=== PATIENT | female | born 1965 | race Caucasian/White ===

== ENCOUNTER 2018-10-12 13:43 | Outpatient (CLI) | payer BC ==
[~2018-10-12] VITALS: Ht 170.2 cm; Wt 77.6 kg
[2018-10-12 13:57] VITALS: BP 138/87
[2018-10-12] MEDS ORDERED: CITA10TA7 PO (14:00)
[2018-10-12 14:43] LABS: BASOPHILS % (AUTO) 0 % (0-10); EOSINOPHILS % (AUTO) 0 % (0-10); HEMATOCRIT 39 % (35-52); HEMOGLOBIN 12.8 G/DL (11.5-16.0); LYMPHOCYTES # (AUTO) 1.4 X 10^3 (1.0-4.0); LYMPHOCYTES % (AUTO) 30 % (12-44); MEAN CORPUSCULAR HEMOGLOBIN 31 PG (25-34); MEAN CORPUSCULAR HGB CONC 33 G/DL (32-36); MEAN CORPUSCULAR VOLUME 94 FL (80-99); MEAN PLATELET VOLUME 8.3 FL (7.4-10.4); MONOCYTES # (AUTO) 0.4 X 10^3 (0.0-1.0); MONOCYTES % (AUTO) 8 % (0-12); NEUTROPHILS # (AUTO) 2.9 X 10^3 (1.8-7.8); NEUTROPHILS % (AUTO) 61 % (42-75); PLATELET COUNT 283 10^3/uL (130-400); RED BLOOD COUNT 4.11 10^6/uL (4.35-5.85); RED CELL DISTRIBUTION WIDTH 12.3 % (10.0-14.5); WHITE BLOOD COUNT 4.8 10^3/uL (4.3-11.0)
[2018-10-12 14:45] LABS: BILIRUBIN,URINE NEGATIVE (NEGATIVE); CLARITY,URINE SLIGHTLY CLOUDY; COLOR,URINE YELLOW; GLUCOSE, URINE (UA) NEGATIVE (NEGATIVE); KETONES,URINE NEGATIVE (NEGATIVE); LEUKOCYTE ESTERASE ,URINE NEGATIVE (NEGATIVE); NITRITE,URINE NEGATIVE (NEGATIVE); PH,URINE 7 (5-9); PROTEIN,URINE NEGATIVE (NEGATIVE); UROBILINOGEN,URINE NORMAL (NORMAL)
[2018-10-12 14:51] LABS: BACTERIA,URINE NEGATIVE /HPF; RBC,URINE 0-2 /HPF; SQUAMOUS EPITHELIAL CELL,UR RARE /HPF
[2018-10-12 14:56] LABS: PROTHROMBIN TIME PATIENT 13.2 SEC (12.2-14.7)
[2018-10-12 15:01] LABS: ERYTHROCYTE SEDIMENTATION RATE 6 MM/HR (0-30)
--- NOTE | 2018-10-12 15:04 | Diagnostic Imaging Report ---
INDICATION: Preop right knee arthroplasty. FINDINGS: Heart size and pulmonary vascularity are normal. Lungs are clear. There are no effusions or pneumothoraces. IMPRESSION: Negative chest. Dictated by: Dictated on workstation # [id number]
[2018-10-12 15:06] LABS: ALANINE AMINOTRANSFERASE 25 U/L (0-55); ALBUMIN 4.6 GM/DL (3.2-4.5); ALKALINE PHOSPHATASE 69 U/L (40-136); BILIRUBIN,TOTAL 0.3 MG/DL (0.1-1.0); BUN/CREATININE RATIO 14; CALCIUM 9.8 MG/DL (8.5-10.1); CARBON DIOXIDE 23 MMOL/L (21-32); CHLORIDE 104 MMOL/L (98-107); CREATININE SERUM 0.78 MG/DL (0.60-1.30); GFR ESTIMATED > 60; GLUCOSE 89 MG/DL (70-105); POTASSIUM 3.8 MMOL/L (3.6-5.0); SODIUM 139 MMOL/L (135-145); TOTAL PROTEIN 7.6 GM/DL (6.4-8.2)
== END 2018-10-12 15:00 | disposition home or self-care (01) ==
LOC: PREOP 13:43
PROVIDERS: ATTEND Orthopaedic Surgery
DX: Z01.810 Encounter for preprocedural cardiovascular examination (principal); Z01.811 Encounter for preprocedural respiratory examination; Z01.812 Encounter for preprocedural laboratory examination; M17.11 Unilateral primary osteoarthritis, right knee; R53.83 Other fatigue
CPT/HCPCS: 36415; 71046; 80053; 81000; 85025; 85610; 85652; 86850; 86900; 86901; 87081; 93005

== ENCOUNTER 2018-10-18 06:21 | Inpatient (IN) | payer BC ==
--- NOTE | 2018-10-09 11:57 | HISTORY AND PHYSICAL ---
DATE OF SERVICE: 10/18/2018 ADMISSION HISTORY AND PHYSICAL DATE OF ADMISSION: 10/18/2018 This will be for inpatient admission on 10/18/2018 for right total knee arthroplasty. The patient will require regular inpatient admission secondary to pain management, physical therapy, gait training and instability. HISTORY OF PRESENT ILLNESS: The patient is a 52-year-old female with progressively worsening right knee pain. She has undergone multiple arthroscopies in the past. She reports no improvement with progressive symptoms. She has undergone injections well. She reports difficulty with ambulation because of her knee. Radiographs reveal severe medial and patellofemoral arthrosis and due to functional impairment and failure to improve with conservative measures, the patient elected to proceed with surgical intervention. REVIEW OF SYSTEMS: No chest pain, no shortness of breath. No dysuria. PAST MEDICAL HISTORY: Denies. PAST SURGICAL HISTORY: Right knee arthroscopy and left carpal tunnel release. FAMILY HISTORY: Significant for thyroid disorder. PRIMARY CARE PROVIDER: Dr. Duran. MEDICATIONS: Celexa, meloxicam. ALLERGIES: No known allergies. SOCIAL HISTORY: The patient denies alcohol, tobacco use. PHYSICAL EXAMINATION: GENERAL: The patient is well developed, well-nourished, in no acute distress. HEENT: Normocephalic, atraumatic. Pupils are equal, round, reactive to light. Oropharynx is clear. NECK: Supple, no lymphadenopathy. LUNGS: Clear to auscultation bilaterally. HEART: Regular rate and rhythm. ABDOMEN: Soft, nontender, nondistended. EXTREMITIES: The right knee demonstrates a slight effusion. There is no erythema or warmth. She has patellofemoral crepitus and pain with patellar loading. She ambulates with an antalgic gait. Range of motion is 0/2/125. IMPRESSION: Severe right knee osteoarthritis, unresponsive to conservative measures. PLAN: Right total knee arthroplasty. The risks, benefits, options, ramifications and recovery have been discussed at length with the patient. She understands and wishes to proceed. Job ID: [id number] DocumentID: [id number] Dictated Date: 10/09/2018 11:37:32 Assistant Center Director Date: 10/09/2018 11:56:23 Dictated By: AAYUSH UNDERWOOD MD
[~2018-10-18] VITALS: Ht 170.2 cm; Wt 77.6 kg
[~2018-10-18 06:21] MED LIST: CITA10TA7 PO
[2018-10-18] MEDS ORDERED: MIDAZOLAM 2 MG/2 ML (VERSED) VIAL ONE (06:34)
[2018-10-18] MEDS ORDERED: BUPIVACAINE 0.5% 30 ML (SENSORCAINE) VIAL ONE (06:34)
[2018-10-18] MEDS ORDERED: LIDOCAINE PF 2% 5 ML (XYLOCAINE) VIAL ONE ×2 (06:34→06:44)
[2018-10-18 06:40] VITALS: BP 138/93
[2018-10-18] MEDS: LACTATED RINGERS 1,000 ML IV PRN ×2 (06:40→08:45)
[2018-10-18] MEDS ORDERED: ONDANSETRON 4 MG/2 ML (SDV) Z0FRAN ONE (06:44)
[2018-10-18] MEDS ORDERED: DEXAMETHASONE 10 MG/ML (DECADRON) 1 ML VIAL ONE (06:44)
[2018-10-18] MEDS ORDERED: proPOfol 200 MG/20 ML (DIPRIVAN) VIAL IV ONE (06:44)
[2018-10-18] MEDS ORDERED: fentaNYL INJECTION 100 MCG/2 ML AMP ONE ×2 (06:44→08:01)
[2018-10-18] MEDS ORDERED: SEVOFLURANE (ULTANE) 15 ML INHAL SOLN ONE ×3 (06:44→08:50)
[2018-10-18] MEDS ORDERED: CEFUROXIME INJECTION 1,500 MG in NS (IVPB) 50 ML IV ONE (07:00)
[2018-10-18] MEDS ORDERED: TRANEXAMIC ACID 100 MG/ML 10 ML INJECTION IV ONE (07:05)
[2018-10-18] MEDS ORDERED: CEFUROXIME 1.5 GM (ZINACEF) VIAL ONE (07:16)
[2018-10-18] MEDS ORDERED: NS (IVPB) 50 ML ONE (07:16)
[2018-10-18] MEDS ORDERED: CATHETER FLUSH 10 ML SYR IV PRN (07:30)
[2018-10-18] MEDS ORDERED: INTRA-ARTICULAR IU ONE ×5 (07:30)
--- NOTE | 2018-10-18 07:36 | Progress Note-Pre Operative ---
Pre-Operative Progress Note H&P Reviewed The H&P was reviewed, patient examined and no changes noted. Date Seen by Provider: Oct 18, 2018 Time Seen by Provider: 07:15 Date H&P Reviewed: Oct 18, 2018 Time H&P Reviewed: 07:20 Pre-Operative Diagnosis: righ knee primary osteoarthritis AAYUSH UNDERWOOD MD Oct 18, 2018 07:36
--- NOTE | 2018-10-18 07:37 | Progress Note-Post Operative ---
Post-Operative Progess Note Surgeon (s)/Public Information Coordinator (s) Surgeon AAYUSH UNDERWOOD MD Public Information Coordinator: Orlando Chawla Pre-Operative Diagnosis righ knee primary osteoarthritis Post-Operative Diagnosis right knee primary osteoarthritis Procedure & Operative Findings Date of Procedure 10/18/18 Procedure Performed/Findings right total knee arthroplasty Anesthesia Type GETA Estimated Blood Loss Estimated blood loss (mL): minimal Specimens/Packing Specimens Removed none Packing: none AAYUSH UNDERWOOD MD Oct 18, 2018 07:37
[2018-10-18] MEDS ORDERED: OXYC1TAB87 PO (07:38)
--- NOTE | 2018-10-18 07:40 | D/C HH Face to Face Order ---
D/C Face to Face Orders Instructions for Patient Via Roxanne [email or web address].la, Patient Instructions/FollowUp: three weeks Physician to follow Patient: three weeks Discharge Diet for Home: No Restrictions Patient Data-Allergies,Ht & Wt Patient Allergies: Coded Allergies: No Known Drug Allergies (Unverified , 10/12/18) Height (Feet): 5 Height (Inches): 7.00 Weight (Pounds): 171 Weight (Ounces): 0.0 Home Health Need/Face to Face Date of Face to Face: Oct 18, 2018 Clinical Findings: Instability, Muscle weakness, Pain with ambulation, Unsteady gait I have seen Pt [id number]: Yes Discharged To: Home Diagnosis/Conditions: right total knee arthroplasty Patient is Homebound due to: Jeanne fall risk due to instabilty, Muscle weakness , Pain w/ambulation Homebound Status Due to the above stated illness, injury or surgical procedure (medical condition or diagnosis) and associated clinical findings, the patient is homebound because of his/her inability to leave home except with aid of a supportive device and/or person AND leaving the home requires a considerable and taxing effort or is medically contraindicated. Pt req the following assistanc: Walker Home Health Nursing Orders Home Health Services Order: Physical Therapy-Evaluate & Treat Dc right knee selene and apply steri strips 11/01/18 Home Health Infusion Therapy Line Start Date: Oct 18, 2018 Line Start Time: 0640 Line Type: Peripheral IV Site Location: Wrist Therapy Orders Therapy Orders: Physical Therapy, PT to assess for OT Therapy Specific Orders: Eval assistive deivces, Teach enviro modifications/ safety, Gait training, Provider maintenance therapy, Restore ROM Certify Stmt I certify that this patient is under my care and that I, a nurse practitioner or a physician; a activities assistant working with me, had a face to face encounter that - meets the physician face to face encounter requirements with this patient as dated. AAYUSH UNDERWOOD MD Oct 18, 2018 07:40
[2018-10-18] MEDS ORDERED: KETOROLAC 30 MG/ML VIAL ONE (08:50)
[2018-10-18] MEDS ORDERED: PHENYLEPHRINE 100 MCG/ML 10 ML (ANESTHESIA) SYR ONE (08:51)
[2018-10-18] MEDS ORDERED: morphine PCA 100 MG/100 ML BAG IV PRN (09:15)
[2018-10-18] MEDS ORDERED: ONDANSETRON 4 MG/2 ML (SDV) Z0FRAN IVP PRN ×2 (09:15)
[2018-10-18] MEDS ORDERED: HYDROmorphone 2 MG/ML VIAL (DILAUDID) IV ONE (09:15)
[2018-10-18] MEDS ORDERED: diphenhydrAMINE 50 MG/ML INJ (BENADRYL) IVP PRN (09:15)
[2018-10-18] MEDS ORDERED: ACETAMINOPHEN 325 MG TABLET PO PRN (09:15)
--- NOTE | 2018-10-18 10:15 | NUR ---
Pt. brought to floor from recovery via hospital bed. Joés Luis at bedside. Pt. oriented to room and call light. PROJECT EXECUTIVE Morphine set up and patient taught on use.
--- NOTE | 2018-10-18 10:18 | Diagnostic Imaging Report ---
INDICATION: Right knee arthroplasty. COMPARISON: None. FINDINGS: Two views of the right knee demonstrate well-seated arthroplasty without fracture or dislocation. There is no unexpected postoperative foreign body. IMPRESSION: Well-seated right knee arthroplasty. Dictated by: Dictated on workstation # [id number]
--- NOTE | 2018-10-18 10:25 | Progress Note-Standard ---
Standard Progress Note Progress Notes/Assess & Plan Date Seen by a Provider: Oct 18, 2018 Time Seen by a Provider: 09:30 Progress/Assessment & Plan post op check no complaints denies paresthesias radiographs--HW well positioned without fracture RLE--intact DF and PF of toes and ankle with intact sensation throughout. 2 plus DP pulse with brisk cap refill s/p RTKA mobilize as able AAYUSH UNDERWOOD MD Oct 18, 2018 10:25
[2018-10-18 10:30] VITALS: BP 122/59
--- NOTE | 2018-10-18 10:32 | OPERATIVE REPORT ---
DATE OF SERVICE: 10/18/2018 PREOPERATIVE DIAGNOSIS: Right knee primary osteoarthritis. POSTOPERATIVE DIAGNOSIS: Right knee primary osteoarthritis. PROCEDURE: Right total knee arthroplasty. SURGEON: Quinn Underwood MD. MANAGEMENT ADVISOR: Orlando Chawla, who assisted throughout the procedure and closed the incision. ANESTHESIA: General endotracheal by Jose Manuel Vo plus adductor nerve block. TOURNIQUET TIME: Approximately 63 minutes at 300 mmHg. ESTIMATED BLOOD LOSS: Minimal. DRAINS: None. COMPLICATIONS: None. POSTOPERATIVE PLAN: Routine protocol. MATERIALS: MicroPort cemented size 5 femur, cemented size 5 tibia with a 10 mm insert and cemented size 32 patellar button. STATEMENT OF MEDICAL NECESSITY: The patient is a 52-year-old female with longstanding progressive right knee pain. She has undergone treatment with multiple injections as well as arthroscopies without relief. Radiographs revealed severe medial and patellofemoral arthrosis. She reported functional impairment. Because of failure to improve with conservative measures and progressive symptoms, the patient elected to proceed with surgical intervention. DESCRIPTION OF PROCEDURE: After risks and benefits of the procedure were discussed and questions were answered, an informed consent was signed and placed on chart. The operative site was confirmed in the preoperative holding area initialed by the surgeon. The patient was then transported to the operating room and after adequate levels of general endotracheal anesthetic were obtained, a timeout was called confirming the operative site. The right lower extremity was then prepped and draped in the usual sterile fashion with the leg elevated and the knee flexed, tourniquet inflated to 300 mmHg. A standard anterior approach was utilized. Hemostasis was obtained with cautery. A medial parapatellar arthrotomy was performed leaving a 1 cm cuff on the patella for later reattachment. A portion of the fat pad was resected. The ACL was resected. A subperiosteal release was performed on the proximal medial tibia being careful to stay on the bony surface. The intramedullary guide was passed into the femur. The distal cutting block was placed and the distal cut was made. The femoral sizer was placed and the femur sized to a size 5. The 5 cutting block was placed parallel to the epicondylar axis and the cuts were made from posterior to anterior. A subperiosteal release was then carefully performed in the posterior distal femur, being careful to stay on the bony surface with a curved osteotome. The intramedullary guide was then passed into the tibia. The cutting block was placed and the drop hamzah transected at the intramedullary access. The cut was made and the tibial baseplate was placed. The drop hamzah again transected at the intramedullary access and this was then prepared with a drill and keel punch. The femoral trial was placed and the trochlear cut was made. The patella was then prepared by using freehand technique and resecting 10 mm off the undersurface of the peg. The peg guide was placed and the peg holes were drilled. The patellar trial was placed. The knee was taken through range of motion with a 10 mm tibial insert. Full extension was easily obtained, 120 degrees of flexion with gravity was easily obtained. The patella tracked well. There was no anterior/posterior or medial/lateral laxity in flexion or extension. The trials were removed. The joint was irrigated with pulse lavage. The periarticular block was placed in the posterior capsule, medial and lateral retinaculum and extensor mechanism and subcutaneous tissues. The bone ends were irrigated and dried. The tibial baseplate was cemented into position. Excessive cement was removed. The superior surface was irrigated and dried. The polyethylene insert was placed. Distal femur was irrigated and dried and the femoral prosthesis was cemented into position. Excessive cement was removed. The knee was brought into full extension until the cement had cured. The undersurface of patella was irrigated and dried. The patellar button was cemented into position. Excess cement was removed. Once the cement had cured, the knee was taken through range of motion. Full extension was easily obtained, 120 degrees of flexion with gravity was easily obtained. The patella tracked well. There was no anterior/posterior or medial/lateral laxity in flexion or extension. The joint was further irrigated. The arthrotomy was closed with #2 Tevdek in [id number] interrupted fashion. The knee was then flexed and no undue tension was noted at the repair site. Subcutaneous tissues were irrigated. A 0 Vicryl was used to deep subcutaneous tissue, 2-0 Vicryl for the superficial subcutaneous tissue, selene used on the skin. A sterile dressing was applied. The tourniquet was deflated and the patient was transported to recovery room, awake and in stable condition. Job ID: [id number] DocumentID: [id number] Dictated Date: 10/18/2018 09:07:37 Bicycle Ii Assembler Date: 10/18/2018 10:31:26 Dictated By: QUINN UNDERWOOD MD
[2018-10-18] MEDS: NS IV 1000 ML 1,000 ML IV SCH (10:45)
[2018-10-18 12:00] VITALS: BP 125/61
--- NOTE | 2018-10-18 13:55 | Physical Therapy Evaluation ---
PT Evaluation-General Medical Diagnosis Admission Date Oct 18, 2018 at 07:26 Medical Diagnosis: right TKA Onset Date: Oct 18, 2018 Therapy Diagnosis Therapy Diagnosis: impaired mobility, strength, endurance, ROM Height/Weight Height (Feet): 5 Height (Inches): 7.00 Weight (Pounds): 171 Weight (Ounces): 0.0 Precautions Precautions/Isolations: Standard Precautions Weight Bear Status Right Lower Extremity: Right Weight Bearing/Tolerated Referral Physician: Orlando Chawla Reason for Referral: Evaluation/Treatment Medical History Additional Medical History surg (right knee scope, carpal tunnel) Reviewed History: Yes Social History Current Living Status: Spouse Entry Into Home: Stairs With Railing PT Steps Into Home: 2 Prior/Core FIM Prior Level of Function Therapy Code Descriptions/Definitions Functional [place] Measure: 0=Not Assessed/NA 4=Minimal Assistance 1=Total Assistance 5=Supervision or Setup 2=Maximal Assistance 6=Modified [place] 3=Moderate Assistance 7=Complete [place] Therapy Quality Codes: 6 Independent with activity with or without an assistive device 5 Patient requires set up or clean up by helper. Patient completes activity by themselves 4 Supervision or touching assist (CGA). [place] provide cues , steadying assist 3 The helper provides less than half the effort to complete the activity 2 The helper provides more than half the effort to complete the activity 1 Dependent. The helper does all the effort to complete an activity 7 Patient refused to complete or attempt activity 9 The patient did not perform the activity before the current illness or injury 88 Not attempted due to Medical conditions or safety concerns Functional Abilities and Goals: Independent: Patient completed the activities by him/herself, with or without an assistive device, with no assistance from a helper. Needed Some Help: Patient needed partial assistance from another person to complete activities. Dependent: A helper completed the activities for the patient. Unknown: Not Applicable: Bed Mobility: 7 Transfers (B,C,W/C) (FIM): 7 Gait: 7 Stairs: 7 Indoor Mobility (Ambulation): Independent Stairs: Independent PT Evaluation-Current Subjective Patient in bed pre tx, agrees to PT, has 6/10 pain in right knee. Pt/Family Goals to be independent at home Objective Patient Orientation: Person, Place, Situation, Normal For Age Attachments: SCD's, Polar Pack ROM/Strength ROM Lower Extremities right knee flexion 50 degrees, extension +5 degrees Strength Lower Extremities NT Neuromuscular (Tone, Coordination, Reflexes) NT Sensory Vision: Wears Glasses Hearing: Functional Sensation Right Lower Extremit: Impaired Sensation Left Lower Extremity: Intact Sensation Lower Extremities patient still has some numbness on the medial side of her knee and calf Transfers Therapy Code Descriptions/Definitions Functional [place] Measure: 0=Not Assessed/NA 4=Minimal Assistance 1=Total Assistance 5=Supervision or Setup 2=Maximal Assistance 6=Modified [place] 3=Moderate Assistance 7=Complete [place] Transfers (B, C, W/C) (FIM): 5 Scootin Rollin Supine to/from Sit: 5 Sit to/from Stand: 5 bed t/f WC(FIM only if WC use): 5 Cues for hand placement and safety. Patient gets a little light headed with sitting and standing but it clears quickly. Gait Mode of Locomotion: Walk Anticipated Mode of Locomotion: Walk Gait (FIM): 2 Distance: 60' Gait Level of Assist: 4 Gait Persons Needed: 1 Gait Assistive Device: FWW Comments/Gait Description Patient ambulated 60' with a rolling walker with CGA, flexed right knee, decreased stance time on right, good heel strike. Balance Sitting Static: Normal Sitting Dynamic: Normal Standing Static: Good Standing Dynamic: Good Treatment Right total knee protocol x10 (AP, QS, HS, SAQ, SLR). CPM did not work, will get another one to her room soon and put it on her. Patient in bed post tx with nurse call, phone, tray, all needs met. Family in the room. Assessment/Needs Patient has impaired mobility, strength, endurance, ROM post right knee TKA. Rehab Potential: Fair PT Short Term Goals Short Term Goals Time Frame: Oct 25, 2018 Transfers (B,C,W/C) (FIM): 6 Gait (FIM): 5 Gait Distance Comment: 150' Gait Level of Assist: 5 Gait Assistive Device: FWW PT Plan Problem List Problem List: Activity Tolerance, Functional Strength, Safety, Balance, Gait, Transfer, Bed Mobility, ROM Treatment/Plan Treatment Plan: Continue Plan of Care Treatment Plan: Bed Mobility, Education, Functional Activity [place], Functional Strength, Gait, Safety, Therapeutic Exercise, Transfers Treatment Duration: Oct 25, 2018 Frequency: 11 times per week Estimated Hrs Per Day: .25 hour per day Patient and/or Family Agrees t: Yes Safety Risks/Education Patient Education: Gait Training, Transfer Techniques, Reviewed Use of Ice, Correct Positioning, Safety Issues Teaching Recipient: Patient Teaching Methods: Demonstration, Discussion Response to Teaching: Reinforcement Needed Discharge Recommendations Plan Patient will perform bed mobility and transfer training, balance and endurance training, functional strengthening, stair training, gait training, and education , to improve functional mobility and independence at home. Therapy D/C Recommendations: Home w/ Family Support Time/GCodes Time In: 1315 Time Out: 1345 Total Billed Treatment Time: 30 Total Billed Treatment 1 visit EVL 15' GT 15' EFRAIN PALACIOS PT Oct 18, 2018 13:55
--- NOTE | 2018-10-18 15:59 | Physical Therapy Progress Note ---
Therapy Progress Note At 1550 CPM donned and set to leg and set to 50/-2. Patient in bed post tx with nurse call, phone, tray, all needs met. EFRAIN PALACIOS PT Oct 18, 2018 15:59
[2018-10-18 16:00] VITALS: BP 119/66
[2018-10-18] MEDS: CEFUROXIME INJECTION 750 MG in NS (IVPB) 50 ML IV SCH (17:24)
[2018-10-18 20:00] VITALS: BP 128/63
[2018-10-18] MEDS: SENNA W/DOCUSATE (SENOKOT S) TABLET PO SCH (21:09)
[2018-10-18] MEDS: ENOXAPARIN 30 MG/0.3 ML (LOVENOX) SYR SC SCH (21:10)
[2018-10-19 00:10] VITALS: BP 130/65
[2018-10-19] MEDS: NS IV 1000 ML 1,000 ML IV SCH ×3 (01:48→22:42)
[2018-10-19] MEDS: CEFUROXIME INJECTION 750 MG in NS (IVPB) 50 ML IV SCH (01:48)
[2018-10-19 04:12] VITALS: BP 129/66
[2018-10-19 05:49] LABS: HEMOGLOBIN 10.6 G/DL (11.5-16.0)
[2018-10-19] MEDS: MULTIVIT W/MINERALS TAB (THERAGRAN M) PO SCH (06:12)
[2018-10-19] MEDS: ENOXAPARIN 30 MG/0.3 ML (LOVENOX) SYR SC SCH ×2 (07:59→20:27)
[2018-10-19] MEDS: ASPIRIN E.C. 81 MG (ECOTRIN) TAB PO SCH (07:59)
[2018-10-19] MEDS: SENNA W/DOCUSATE (SENOKOT S) TABLET PO SCH ×2 (07:59→20:27)
[2018-10-19 08:00] VITALS: BP 113/59
--- NOTE | 2018-10-19 08:08 | Progress Note-Standard ---
Standard Progress Note Progress Notes/Assess & Plan Date Seen by a Provider: Oct 19, 2018 Time Seen by a Provider: 08:07 Progress/Assessment & Plan post op check no complaints denies paresthesias radiographs--HW well positioned without fracture RLE--intact DF and PF of toes and ankle with intact sensation throughout. 2 plus DP pulse with brisk cap refill s/p RTKA mobilize as able Final Diagnosis co of pain laterally Vital Signs Date Time Temp Pulse Resp B/P (MAP) Pulse Ox O2 Delivery O2 Flow Rate FiO2 10/19/18 06:10 18 10/19/18 04:12 98.9 98 20 129/66 (87) 94 Room Air 10/19/18 00:10 99.0 93 20 130/65 (86) 99 Room Air 10/18/18 21:12 18 10/18/18 20:00 97.1 84 18 128/63 (84) 98 Room Air 10/18/18 16:00 96.5 73 18 119/66 (83) 95 Room Air 10/18/18 12:00 97.5 94 20 125/61 (82) 95 Room Air 10/18/18 10:45 18 10/18/18 10:30 97.1 95 20 122/59 (80) 98 Room Air I & O 10/19/18 07:00 Intake Total 3355 ml Balance 3355 ml Laboratory Tests Test 10/19/18 05:40 Range/Units Hemoglobin 10.6 L 11.5-16.0 G/DL Hematocrit 33 L 35-52 % RLE--dressing intact. NVI distally. no calf tenderness s/p RTKA continue PT/OT AAYUSH UNDERWOOD MD Oct 19, 2018 08:08
[2018-10-19] MEDS: oxyCODONE/APAP 5/325MG (PERCOCET 5) TABLET PO PRN ×5 (09:00→20:27)
--- NOTE | 2018-10-19 09:49 | Physical Therapy Daily Note ---
PT Daily Note-Current Subjective Patient agrees to PT. Pain Numeric Pain Scale: 7 Location: Right Location Body Site: Knee Pain Description: Acute Mental Status Patient Orientation: Normal For Age Attachments: IV Transfers Therapy Code Descriptions/Definitions Functional [place] Measure: 0=Not Assessed/NA 4=Minimal Assistance 1=Total Assistance 5=Supervision or Setup 2=Maximal Assistance 6=Modified [place] 3=Moderate Assistance 7=Complete Price Therapy Quality Codes: 6 Independent with activity with or without an assistive device 5 Patient requires set up or clean up by helper. Patient completes activity by themselves 4 Supervision or touching assist (CGA). [place] provide cues , steadying assist 3 The helper provides less than half the effort to complete the activity 2 The helper provides more than half the effort to complete the activity 1 Dependent. The helper does all the effort to complete an activity 7 Patient refused to complete or attempt activity 9 The patient did not perform the activity before the current illness or injury 88 Not attempted due to Medical conditions or safety concerns Transfers (B, C, W/C) (FIM): 6 Sit to/from Stand: 6 Weight Bearing Right Lower Extremity: Right Weight Bearing/Tolerated Gait Training Gait (FIM): 6 Distance (FIM): 3=150 ft Distance: 325' Gait Level of Assist: 6 Gait Assistive Device: FWW slow, antalgic, step to gait sequence Exercises Supine Ex: Ankle pumps, Quad Set, Heel Slides Supine Reps: 15 Seated Therapy Exercises: Ankle pumps, Long arc quads Seated Reps: 15 Assessment Patient tolerated treatment well and is progressing with treatment plan. Per patient report, she plans dismissal to home tomorrow. PT Short Term Goals Short Term Goals Time Frame: Oct 25, 2018 Transfers (B,C,W/C) (FIM): 6 Gait (FIM): 5 Gait Distance Comment: 150' Gait Level of Assist: 5 Gait Assistive Device: FWW PT Plan Treatment/Plan Treatment Plan: Continue Plan of Care Treatment Plan: Bed Mobility, Education, Functional Activity Ebonie, Functional Strength, Gait, Safety, Therapeutic Exercise, Transfers Treatment Duration: Oct 25, 2018 Frequency: 11 times per week Estimated Hrs Per Day: .25 hour per day Patient and/or Family Agrees t: Yes Time/GCodes Time In: 840 Time Out: 909 Total Billed Treatment Time: 29 Total Billed Treatment 1 visit GT 13 min EX 16 min IRVIN WALKER PT Oct 19, 2018 09:49
[2018-10-19 11:25] VITALS: BP 122/68
--- NOTE | 2018-10-19 11:59 | NUR ---
CM/SS spoke with the patient for discharge planning. Patient is likely to discharge on 10/20. She would like PT with [facility] in [place], information will be sent to them at time of discharge.
[2018-10-19] MEDS: CYCLOBENZAPRINE 10 MG (FLEXERIL) TAB PO PRN ×2 (13:04→19:23)
--- NOTE | 2018-10-19 13:32 | Physical Therapy Daily Note ---
PT Daily Note-Current Subjective Patient is tearful due to right knee pain. RN called physician for muscle relaxant to decrease pain. Pain Numeric Pain Scale: 10-Worst Possible Pain Location: Right Location Body Site: Knee Pain Description: Acute Mental Status Patient Orientation: Normal For Age Attachments: IV Transfers Therapy Code Descriptions/Definitions Functional [place] Measure: 0=Not Assessed/NA 4=Minimal Assistance 1=Total Assistance 5=Supervision or Setup 2=Maximal Assistance 6=Modified [place] 3=Moderate Assistance 7=Complete [place] Therapy Quality Codes: 6 Independent with activity with or without an assistive device 5 Patient requires set up or clean up by helper. Patient completes activity by themselves 4 Supervision or touching assist (CGA). [place] provide cues , steadying assist 3 The helper provides less than half the effort to complete the activity 2 The helper provides more than half the effort to complete the activity 1 Dependent. The helper does all the effort to complete an activity 7 Patient refused to complete or attempt activity 9 The patient did not perform the activity before the current illness or injury 88 Not attempted due to Medical conditions or safety concerns Transfers (B, C, W/C) (FIM): 6 Scootin Rollin Supine to/from Sit: 6 Sit to/from Stand: 6 Bed to/from Chair: 6 Weight Bearing Right Lower Extremity: Right Weight Bearing/Tolerated Gait Training Gait (FIM): 6 Distance (FIM): 3=150 ft Distance: 300' Gait Level of Assist: 6 Gait Assistive Device: FWW slow, antalgic with minimal weight bearing right LE due to pain (education with patient on importance of weight bearing to increase circulation and decrease pain) Exercises Supine Ex: Ankle pumps, Quad Set Supine Reps: 15 Seated Therapy Exercises: Ankle pumps, Long arc quads Seated Reps: 15 Assessment Patient voices relief with ROM and massage to right LE. Patient improving with treatment plan. PT Short Term Goals Short Term Goals Time Frame: Oct 25, 2018 Transfers (B,C,W/C) (FIM): 6 Gait (FIM): 5 Gait Distance Comment: 150' Gait Level of Assist: 5 Gait Assistive Device: FWW PT Plan Treatment/Plan Treatment Plan: Continue Plan of Care Treatment Plan: Bed Mobility, Education, Functional Activity Ebonie, Functional Strength, Gait, Safety, Therapeutic Exercise, Transfers Treatment Duration: Oct 25, 2018 Frequency: 11 times per week Estimated Hrs Per Day: .25 hour per day Patient and/or Family Agrees t: Yes Time/GCodes Time In: 1215 Time Out: 1246 Total Billed Treatment Time: 31 Total Billed Treatment 1 visit EX 17 min GT 14 min IRVIN WALKER PT Oct 19, 2018 13:32
--- NOTE | 2018-10-19 14:14 | Anesthesia-General Post-Op ---
General Patient Condition Mental Status/LOC: Same as Preop Cardiovascular: Satisfactory Nausea/Vomiting: Absent Respiratory: Satisfactory Pain: Controlled Complications: Absent Post Op Complications Complications None Follow Up Care/Instructions Patient Instructions None needed. Anesthesia/Patient Condition Patient Condition Patient is doing well, no complaints, stable vital signs, no apparent adverse anesthesia problems. No complications reported per nursing. AB VALVERDE CRNA Oct 19, 2018 14:14
--- NOTE | 2018-10-19 14:15 | Anesthesia-Regional Post-Op ---
Regional Patient Condition Mental Status: Alert, Oriented x3 Circulation: Same as Pre-Op Headache: Absent Sensation: Full Recovery Motor Block: Absent Post Op Complications Complications None Follow Up Care/Instructions Patient Instructions None needed. Anesthesia/Patient Condition Patient is doing well, no complaints, stable vital signs, no apparent adverse anesthesia problems. No complications reported per nursing. AB VALVERDE CRNA Oct 19, 2018 14:15
[2018-10-19 16:30] VITALS: BP 125/86
--- NOTE | 2018-10-19 16:54 | Occupational Therapy Eval ---
OT Evaluation-General/PLF Medical Diagnosis Admission Date Oct 18, 2018 at 07:26 Medical Diagnosis: right TKA Onset Date: Oct 18, 2018 Therapy Diagnosis Therapy Diagnosis: Decr self care, decr funct mobility Height/Weight Height (Feet): 5 Height (Inches): 7.00 Weight (Pounds): 171 Weight (Ounces): 0.0 Precautions Precautions/Isolations: Standard Precautions Weight Bear Status Weight Bearing Restriction: Weight Bearing/Tolerated Referral Physician: Orlando Chawla Referral Reason: Evaluation/Treatment Medical History Pertinent Medical History: OA (R knee) Additional Medical History Tried conservative tx. R knee scope. L CTS Current History Elective R TKA Reviewed History: Yes Social History Current Living Status: Spouse Entry Into Home: Stairs With Railing Steps Into Home: 2 ADL-Prior Level of Function Therapy Code Descriptions/Definitions Functional [place] Measure: 0=Not Assessed/NA 4=Minimal Assistance 1=Total Assistance 5=Supervision or Setup 2=Maximal Assistance 6=Modified [place] 3=Moderate Assistance 7=Complete [place] Therapy Quality Codes: 6 Independent with activity with or without an assistive device 5 Patient requires set up or clean up by helper. Patient completes activity by themselves 4 Supervision or touching assist (CGA). Zalma provide cues , steadying assist 3 The helper provides less than half the effort to complete the activity 2 The helper provides more than half the effort to complete the activity 1 Dependent. The helper does all the effort to complete an activity 7 Patient refused to complete or attempt activity 9 The patient did not perform the activity before the current illness or injury 88 Not attempted due to Medical conditions or safety concerns Functional Abilities and Goals: Independent: Patient completed the activities by him/herself, with or without an assistive device, with no assistance from a helper. Needed Some Help: Patient needed partial assistance from another person to complete activities. Dependent: A helper completed the activities for the patient. Unknown: Not Applicable: ADL PLOF Comments Pt reported that she has been able to manage all of her basic self care needs. She has had good and bad days as far as knee pain and sometimes has to alternate sitting and standing at work or sit and put her leg up. 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 Self Care: Independent Functional Cognition: Independent DME/Equipment: Tall Toilet (upstairs), Tub/Shower OT Current Status Subjective Pt seen in room, up in bed, agreeable to OT. present. Pain not mentioned. Appearance Alert, cooperative Mental Status/Objective Attachments: IV ADL-Treatment ADL-Current Pt education and problems solving for modified techniques and equipment needed for toileting, bathing, dressing at home. Discussed bedside commode, stool riser , shower chair, getting in and out of bathtub. Pt and verbalized understanding. She walked 325" today with PT, mod I, and may go home tomorrow. Therapy Code Descriptions/Definitions Functional [place] Measure: 0=Not Assessed/NA 4=Minimal Assistance 1=Total Assistance 5=Supervision or Setup 2=Maximal Assistance 6=Modified [place] 3=Moderate Assistance 7=Complete [place] Therapy Quality Codes: 6 Independent with activity with or without an assistive device 5 Patient requires set up or clean up by helper. Patient completes activity by themselves 4 Supervision or touching assist (CGA). Zalma provide cues , steadying assist 3 The helper provides less than half the effort to complete the activity 2 The helper provides more than half the effort to complete the activity 1 Dependent. The helper does all the effort to complete an activity 7 Patient refused to complete or attempt activity 9 The patient did not perform the activity before the current illness or injury 88 Not attempted due to Medical conditions or safety concerns OT Nursing Home Goals Financial Sales Consultant Goals Time Frame: Oct 19, 2018 Additional Goals: 2-Verbalize Understanding 2=Patient will verbalize/demonstrate understanding of assistive devices/ modifications for ADL. OT Education/Plan Problem List/Assessment Assessment: Impaired Self-Care Skills Pt would benefit from ADL education to increase her independence in order to return home safely Discharge Recommendations Plan/Recommendations: Discharge/Goals Met Treatment Plan/Plan of Care Treatment,Training & Education: Yes Patient would benefit from OT for education, treatment and training to promote independence in ADL's, mobility, safety and/or upper extremity function for ADL' s. Plan of Care: ADL Retraining Treatment Duration: Oct 19, 2018 Frequency: 1 time per week Estimated Hrs Per Day: .25 hour per day Agreement: Yes Rehab Potential: Good Time/GCodes Start Time: 15:29 Stop Time: 15:44 Total Time Billed (hr/min): 15 Billed Treatment Time visit, evaluation low intensity 10 minutes, ADL 5 minutes KAREN BRIDGES OT Oct 19, 2018 16:54
[2018-10-19 20:10] VITALS: BP 153/68
[2018-10-20 00:15] VITALS: BP 143/67
[2018-10-20] MEDS: oxyCODONE/APAP 5/325MG (PERCOCET 5) TABLET PO PRN ×4 (00:49→13:06)
[2018-10-20] MEDS: NS IV 1000 ML 1,000 ML IV SCH (00:51)
[2018-10-20 04:03] VITALS: BP 145/65
[2018-10-20] MEDS: MULTIVIT W/MINERALS TAB (THERAGRAN M) PO SCH (05:39)
[2018-10-20] MEDS: CYCLOBENZAPRINE 10 MG (FLEXERIL) TAB PO PRN ×2 (05:41→13:06)
[2018-10-20 06:09] LABS: HEMOGLOBIN 10.6 G/DL (11.5-16.0)
--- NOTE | 2018-10-20 06:25 | Progress Note-Standard ---
Standard Progress Note Progress Notes/Assess & Plan Date Seen by a Provider: Oct 20, 2018 Time Seen by a Provider: 06:15 Progress/Assessment & Plan post op check no complaints denies paresthesias radiographs--HW well positioned without fracture RLE--intact DF and PF of toes and ankle with intact sensation throughout. 2 plus DP pulse with brisk cap refill s/p RTKA mobilize as able Final Diagnosis feeling better Vital Signs Date Time Temp Pulse Resp B/P (MAP) Pulse Ox O2 Delivery O2 Flow Rate FiO2 10/20/18 06:00 20 10/20/18 00:15 99.0 110 20 143/67 (92) 92 Room Air 10/19/18 20:10 98.9 91 20 153/68 (96) 99 Room Air 10/19/18 17:12 18 10/19/18 16:30 98.9 105 18 125/86 (99) 92 Room Air 10/19/18 11:25 98.9 86 18 122/68 (86) 94 Room Air 10/19/18 08:00 99.2 95 18 113/59 (77) 92 Room Air I & O 10/20/18 07:00 Intake Total 1570 ml Balance 1570 ml Laboratory Tests Test 10/20/18 05:24 Range/Units Hemoglobin 10.6 L 11.5-16.0 G/DL Hematocrit 34 L 35-52 % RLE--incision clean and dry. No calf tenderness. Neg Terry's s/p RTKA DC HEMATOLOGY TECHNICIAN DC to home later today AAYUSH UNDERWOOD MD Oct 20, 2018 06:25
[2018-10-20] MEDS ORDERED: morphine INJ 4 MG/ML 1 ML (VIAL/SYRINGE) IVP PRN (06:30)
--- NOTE | 2018-10-20 06:39 | NUR ---
CADD PUMP DC PER ORDER. MORPHINE 40MG WASTED. VERIFIED BY Obinna FERGUSON RN.
[2018-10-20 08:00] VITALS: BP 158/84
--- NOTE | 2018-10-20 09:03 | NUR ---
IRF Evaluation: Order received to evaluate patient for the ARU. Chart reviewed and it appears patient is transferring and ambulating (300ft, FWW) with modified independence; therefore, the patient does not require intensive therapies at this time. Thank you for this referral.
--- NOTE | 2018-10-20 09:17 | Physical Therapy Daily Note ---
PT Daily Note-Current Subjective Patient is up in room ad greyson. Agrees to PT. Pain Numeric Pain Scale: 8 Location: Right Location Body Site: Knee Pain Description: Acute Mental Status Patient Orientation: Normal For Age Transfers Therapy Code Descriptions/Definitions Functional [place] Measure: 0=Not Assessed/NA 4=Minimal Assistance 1=Total Assistance 5=Supervision or Setup 2=Maximal Assistance 6=Modified [place] 3=Moderate Assistance 7=Complete [place] Therapy Quality Codes: 6 Independent with activity with or without an assistive device 5 Patient requires set up or clean up by helper. Patient completes activity by themselves 4 Supervision or touching assist (CGA). [place] provide cues , steadying assist 3 The helper provides less than half the effort to complete the activity 2 The helper provides more than half the effort to complete the activity 1 Dependent. The helper does all the effort to complete an activity 7 Patient refused to complete or attempt activity 9 The patient did not perform the activity before the current illness or injury 88 Not attempted due to Medical conditions or safety concerns Transfers (B, C, W/C) (FIM): 6 Scootin Sit to/from Stand: 6 Weight Bearing Right Lower Extremity: Right Weight Bearing/Tolerated Gait Training Gait (FIM): 6 Distance (FIM): 3=150 ft Distance: 300' x 2 Gait Level of Assist: 6 Gait Assistive Device: FWW slow, antalgic Stair Training Stair Training: Handrails/: 2 handrails Stairs (FIM): 5 #of Steps: 6 Stairs: Pattern: Step to Level of Assist: 5 household Exercises Seated Therapy Exercises: Ankle pumps, Long arc quads Seated Reps: 25 Standing: Heel/toe raises Standing Reps: 25 Assessment Patient progressing with treatment plan and will dismiss to home on this date. Patient has HEP and reports compliance with this. PT Short Term Goals Short Term Goals Time Frame: Oct 25, 2018 Gait (FIM): 5 Gait Distance Comment: 150' Gait Level of Assist: 5 Gait Assistive Device: FWW PT Plan Treatment/Plan Treatment Plan: Continue Plan of Care Treatment Plan: Bed Mobility, Education, Functional Activity [place], Functional Strength, Gait, Safety, Therapeutic Exercise, Transfers Treatment Duration: Oct 25, 2018 Frequency: 11 times per week Estimated Hrs Per Day: .25 hour per day Patient and/or Family Agrees t: Yes Time/GCodes Time In: 800 Time Out: 825 Total Billed Treatment Time: 25 Total Billed Treatment 1 visit FA 17 min EX 8 min IRVIN WALKER PT Oct 20, 2018 09:17
[2018-10-20] MEDS: SENNA W/DOCUSATE (SENOKOT S) TABLET PO SCH (09:51)
[2018-10-20] MEDS: ASPIRIN E.C. 81 MG (ECOTRIN) TAB PO SCH (09:51)
[2018-10-20] MEDS: ENOXAPARIN 30 MG/0.3 ML (LOVENOX) SYR SC SCH (09:52)
--- NOTE | 2018-10-20 10:12 | NUR ---
CM/SS spoke with the patient for discharge planning. Patient lives in [facility] and would like [facility] for PT. Information was sent to [facility] for [facility] PT.
[2018-10-20 12:00] VITALS: BP 142/80
--- NOTE | 2018-10-20 14:05 | Physical Therapy Daily Note ---
PT Daily Note-Current Subjective Patient agrees to PT. Continues to c/o 9/10 right knee pain. Pain Numeric Pain Scale: 9 Location: Right Location Body Site: Knee Pain Description: Acute Mental Status Patient Orientation: Normal For Age Transfers Therapy Code Descriptions/Definitions Functional [place] Measure: 0=Not Assessed/NA 4=Minimal Assistance 1=Total Assistance 5=Supervision or Setup 2=Maximal Assistance 6=Modified [place] 3=Moderate Assistance 7=Complete [place] Therapy Quality Codes: 6 Independent with activity with or without an assistive device 5 Patient requires set up or clean up by helper. Patient completes activity by themselves 4 Supervision or touching assist (CGA). [place] provide cues , steadying assist 3 The helper provides less than half the effort to complete the activity 2 The helper provides more than half the effort to complete the activity 1 Dependent. The helper does all the effort to complete an activity 7 Patient refused to complete or attempt activity 9 The patient did not perform the activity before the current illness or injury 88 Not attempted due to Medical conditions or safety concerns Transfers (B, C, W/C) (FIM): 6 Scootin Rollin Supine to/from Sit: 6 Sit to/from Stand: 6 Weight Bearing Right Lower Extremity: Right Weight Bearing/Tolerated Gait Training Gait (FIM): 6 Distance (FIM): 3=150 ft Distance: 300' x 2 Gait Level of Assist: 6 Gait Assistive Device: FWW skilled verbal instruction for heel/toe gait with reciprocal pattern Exercises Supine Ex: Ankle pumps, Quad Set, Heel Slides, Straight leg raise Supine Reps: 15 Seated Therapy Exercises: Long arc quads Seated Reps: 15 Standing: Heel/toe raises Standing Reps: 15 Assessment Patient continues to limit due to pain. PT encourages patient to increase exercise and activity to receive full benefit from elective surgery. PT Short Term Goals Short Term Goals Time Frame: Oct 25, 2018 Gait (FIM): 5 Gait Distance Comment: 150' Gait Level of Assist: 5 Gait Assistive Device: FWW PT Plan Treatment/Plan Treatment Plan: Discontinue PT, goals met Treatment Plan: Bed Mobility, Education, Functional Activity [place], Functional Strength, Gait, Safety, Therapeutic Exercise, Transfers Treatment Duration: Oct 25, 2018 Frequency: 11 times per week Estimated Hrs Per Day: .25 hour per day Patient and/or Family Agrees t: Yes Time/GCodes Time In: 1315 Time Out: 1340 Total Billed Treatment Time: 25 Total Billed Treatment 1 visit EX 17 min FA 8 min IRVIN WALKER PT Oct 20, 2018 14:05
--- NOTE | 2018-10-20 15:00 | NUR ---
RX AND INST AND VERBALIZED UNDERSTANDING. WALKER HAS BEEN DELIVERED. DC'D PER WC WITH . MASHA DAVISON AND ALL EQUIP SENT WITH PT.
--- NOTE | 2018-10-21 08:59 | DISCHARGE SUMMARY ---
DATE OF SERVICE: DIAGNOSES: Right knee primary osteoarthritis. PROCEDURES: Right total knee arthroplasty. SUMMARY: The patient is a 52-year-old female who was admitted today for right total knee arthroplasty, which she underwent without complications. Postoperatively, she did very well. At time of discharge, her wound was clean and dry. She had no calf tenderness. Negative Homans sign. She cleared with physical therapy. She was tolerating diet well and tolerating pain with oral pain medication. Her hematocrit was stable at 34. CONDITION AT DISCHARGE: Good. DISCHARGE DIET: Regular. FOLLOWUP: Followup is in three weeks. DISCHARGE MEDICATIONS: Home medications, Percocet as needed for pain and aspirin for 4 weeks. DIET: Regular. ACTIVITY: Weightbearing as tolerated with assistive devices as needed for pain. Job ID: [id number] DocumentID: [id number] Dictated Date: 10/20/2018 11:41:05 [place] Tile Shader Date: 10/21/2018 08:59:26 Dictated By: AAYUSH UNDERWOOD MD
== END 2018-10-20 15:00 | disposition home health service (06) | DRG 470 ==
LOC: UNDOADMIN 06:21 → 4TH 06:21 → PREINTOOBSV 06:41 → SURG 07:26 → OBSVTOIN 07:26 → 4TH 10:15
PROVIDERS: ADMIT Orthopaedic Surgery; ATTEND Orthopaedic Surgery
PROC: 0SRC0J9 Replacement of Right Knee Joint with Synthetic Substitute, Cemented, Open Approach (ICD-10-PCS; principal; 2018-10-18 07:29)
DX: M17.11 Unilateral primary osteoarthritis, right knee (principal); G56.91 Unspecified mononeuropathy of right upper limb
CPT/HCPCS: 36415; 73560; 84703; 85014; 85018; 86850; 86900; 86901